=== PATIENT | male | born 1970 | race Caucasian/White ===

== ENCOUNTER 2016-10-10 17:04 | Emergency (ER) | payer BC ==
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
== END 2016-10-10 17:57 | disposition disaster alternative care site (69) ==
LOC: GACC 17:04
DX: M25.512 Pain in left shoulder (principal); F17.220 Nicotine dependence, chewing tobacco, uncomplicated